=== PATIENT | male | born 1995 | race Caucasian/White ===

== ENCOUNTER 2023-05-01 20:13 | Emergency (ER) | payer BC, OTHER ==
[2023-05-01 20:54] LABS: #Basophils 0.1 thou/uL (0.0-0.2); #Eosinphils 0.3 thou/uL (0.0-0.7); #Lymphocytes 2.7 thou/uL (1.20-3.40); #Monocytes 0.7 thou/uL (0.11-0.59); %Lymphocytes 24.8 % (21.0-51.0); %Monocytes 6.3 % (0.0-10.0); %Neutrophils 64.9 % (42.0-75.0); Hemoglobin 14.6 g/dL (14.0-18.0); Mean Corpuscular HGB CONC 33.6 g/dL (32.0-36.0); Mean Corpuscular Hemoglobin 30.4 pg (27.0-31.0); Mean Corpuscular Volume 90.6 fl (78.0-98.0); Mean Platelet Volume 7.3 fL (7.4-10.4); Platelet Count 291 10x3/uL (130-400); RBC Distribution Width 11.9 % (11.5-14.5); Red Blood Cell (RBC) Count 4.79 mill/uL (4.70-6.10); White Blood Cell (WBC) Count 10.8 10x3/uL (4.8-10.8)
[2023-05-01] MEDS ORDERED: Lorazepam 2 MG/ML VIAL ONE (21:03)
[2023-05-01 21:08] LABS: ALT (SGPT) 48 U/L (8-55); AST (SGOT) 31 U/L (5-34); Albumin 4.8 g/dL (3.5-5.0); Alkaline Phosphatase 52 U/L (40-110); Anion Gap 15 mmol/L (10-20); BUN (Urea Nitrogen) 15 mg/dL (8.9-20.6); Bilirubin, Total 0.3 mg/dL (0.2-1.2); Calc. Creatinine Clearance 0 mL/min (70-130); Calcium 9.5 mg/dL (7.8-10.44); Carbon Dioxide 23 mmol/L (22-29); Chloride 105 mmol/L (98-107); Estimated GFR 89; Globulin 2.9 g/dL (2.4-3.5); Glucose 105 mg/dL (70-105); Protein, Total 7.7 g/dL (6.0-8.3); Sodium 139 mmol/L (136-145)
== END 2023-05-01 23:46 | disposition home or self-care (01) ==
LOC: BURERS 20:13
DX: R07.9 Chest pain, unspecified (principal); E78.5 Hyperlipidemia, unspecified; I10 Essential (primary) hypertension
CPT/HCPCS: 36415; 71045; 80053; 83605; 83880; 84484; 85025; 85379; 93005; 96374; J2060

== ENCOUNTER 2024-05-15 16:54 | Emergency (ER) | payer BC ==
[~2024-05-15 16:54] MED LIST: Iopamidol 370 76% 100 ML VIAL ONE
[2024-05-15] MEDS ORDERED: Morphine 4 MG/ML VIAL ONE (17:20)
[2024-05-15] MEDS ORDERED: Ondansetron PF 4 MG/2 ML Vial ONE (17:21)
[2024-05-15 17:32] LABS: #Basophils 0.1 thou/uL (0.0-0.2); #Eosinphils 0.3 thou/uL (0.0-0.7); #Lymphocytes 3.1 thou/uL (1.20-3.40); #Monocytes 0.8 thou/uL (0.11-0.59); #Neutrophils 5.6 thou/uL (1.40-6.50); %Basophils 0.8 % (0.0-1.0); %Eosinophils 3.2 % (0.0-10.0); %Lymphocytes 31.2 % (21.0-51.0); %Monocytes 7.9 % (0.0-10.0); %Neutrophils 56.9 % (42.0-75.0); Hemoglobin 15.6 g/dL (14.0-18.0); Mean Corpuscular HGB CONC 32.4 g/dL (32.0-36.0); Mean Corpuscular Hemoglobin 29.3 pg (27.0-31.0); Mean Corpuscular Volume 90.3 fl (78.0-98.0); Platelet Count 277 10x3/uL (130-400); RBC Distribution Width 11.6 % (11.5-14.5); Red Blood Cell (RBC) Count 5.31 mill/uL (4.70-6.10); White Blood Cell (WBC) Count 9.8 10x3/uL (4.8-10.8)
[2024-05-15] MEDS ORDERED: Sodium Chloride 0.9% 100 ML ONE (17:41)
[2024-05-15] MEDS ORDERED: Piperacillin/Tazobactam 3.375 GM VIAL ONE (17:41)
[2024-05-15 17:42] LABS: Bilirubin Negative (Negative); Blood, Urine Trace (Negative); Clarity Clear (Clear); Glucose, Urine (Dipstick) Negative (Negative); Ketone, Urine Negative (Negative); Leukocyte Negative (Negative); Nitrite Negative (Negative); Protein, Urine (Dipstick) Trace mg/dL (Neg-Trace); Specific Gravity, Urine 1.025 (1.005-1.030); Urobilinogen 0.2 mg/dL (Less than 2)
[2024-05-15 17:48] LABS: Bacteria/HPF 1+ HPF (None Seen); CAUTI Indications for Culture Dysuria,urgency,freq; RBC/HPF 0-3 HPF (0-3); Squamous Epithelial 0-3 HPF (0-3); WBC/HPF 0-3 HPF (0-3)
[2024-05-15 17:49] LABS: Urine Culture Reflex No No
[2024-05-15 17:52] LABS: ALT (SGPT) 130 U/L (8-55); AST (SGOT) 57 U/L (5-34); Albumin 4.7 g/dL (3.5-5.0); Alkaline Phosphatase 66 U/L (40-110); Anion Gap 14 mmol/L (10-20); BUN (Urea Nitrogen) 19 mg/dL (8.9-20.6); Bilirubin, Total 0.2 mg/dL (0.2-1.2); Calc. Creatinine Clearance 0 mL/min (70-130); Carbon Dioxide 25 mmol/L (22-29); Chloride 105 mmol/L (98-107); Estimated GFR 95; Globulin 2.7 g/dL (2.4-3.5); Glucose 97 mg/dL (70-105); Potassium 4.3 mmol/L (3.5-5.1); Protein, Total 7.4 g/dL (6.0-8.3); Sodium 140 mmol/L (136-145)
[2024-05-15] MEDS ORDERED: Ketorolac Tromethamine 30 MG (1 mL) VIAL ONE (18:35)
== END 2024-05-15 19:13 | disposition home or self-care (01) ==
LOC: BURERS 16:54
DX: S32.059A Unspecified fracture of fifth lumbar vertebra, initial encounter for closed fracture (principal); N20.0 Calculus of kidney; I10 Essential (primary) hypertension; X58.XXXA Exposure to other specified factors, initial encounter
CPT/HCPCS: 74177; 80053; 81001; 85025; 96365; 96375; J1885; J2270; J2405; J2543; J3490; Q9967